=== PATIENT | female | born 1980 | race Caucasian/White ===

== ENCOUNTER 2019-09-14 08:48 | Emergency (ER) | payer MEDICAID ==
[~2019-09-14] VITALS: Ht 157.5 cm; Wt 62.1 kg
[2019-09-14 08:50] VITALS: BP_SYST 144
[2019-09-14 09:20] VITALS: BP_SYST 139
== END 2019-09-14 09:20 | disposition home or self-care (01) ==
LOC: SED 08:48
DX: S63.602A Unspecified sprain of left thumb, initial encounter (principal); W51.XXXA Accidental striking against or bumped into by another person, initial encounter; Y93.89 Activity, other specified; Y92.89 Other specified places as the place of occurrence of the external cause; Y99.8 Other external cause status
CPT/HCPCS: 99283